=== PATIENT | male | born 1960 | race American Indian/Alaskan Native ===

== ENCOUNTER 2020-09-29 15:24 | Emergency (ER) | payer MEDICARE, MEDICAID ==
[2020-09-29 16:32] VITALS: BP 129/86
[2020-09-29 17:41] LABS: INR 1.32 (0.87-1.13)
== END 2020-09-30 01:31 ==
LOC: ED 15:24
DX: Z53.21 Procedure and treatment not carried out due to patient leaving prior to being seen by health care provider (principal); I48.0 Paroxysmal atrial fibrillation
CPT/HCPCS: 36415; 85610